=== PATIENT | female | born 1960 | race Caucasian/White ===

== ENCOUNTER → 2016-10-20 | Outpatient (REF) ==
[~2016-10-20] MED LIST: CARAFATE S1 GM/10 ML PO; CIPRO 500MG TA500 MG PO; CLARITIN10 MG PO; FLONASEALLERGY NS; IBUPROFEN800 MG PO; METRONIDAZOLE500 MG PO; MOTRIN 800800 MG/TAB PO; MUCINEX 60600 MG/TA1 PO; MUCINEX600 M1 PO; OMNARIS50 MCG/Act NS; PREVACID 30MG30 M1 PO; SKELAXIN400 MG PO; VICODIN 5/5001 UDTAB PO; XANAX .25M0.25 MG/TA PO; XANAX0.25 MG PO; ZORVOLEX18 MG; ZYRTEC ALLERGY10 MG PO
== END ==
LOC: ZLAB.WCH 12:37
DX: Z01.89 Encounter for other specified special examinations (principal)

== ENCOUNTER → 2016-10-21 | Outpatient (REF) | LOC: ZLAB.WCH 09:20 | DX: Z01.89 Encounter for other specified special examinations (principal) ==

== ENCOUNTER → 2016-12-07 | Outpatient (CLI) | payer BC | LOC: COL.RAD 08:37 | DX: M25.552 Pain in left hip (principal); M25.551 Pain in right hip | CPT/HCPCS: J3301; Q9967 ==

== ENCOUNTER → 2017-04-19 | Outpatient (CLI) | payer BC | LOC: COL.RAD 13:48 | DX: M25.551 Pain in right hip (principal); M25.552 Pain in left hip | CPT/HCPCS: J3301; Q9967 ==

== ENCOUNTER → 2023-11-15 | Outpatient (CLI) | payer OTHER ==
[2005-03-09 08:02] VITALS: BP 121/80; PULSE 86; TEMP 97.1
== END ==
LOC: COL.VAS 08:48
DX: I51.7 Cardiomegaly (principal)